=== PATIENT | female | born 1980 ===

== ENCOUNTER 2016-05-21 17:25 | Inpatient (IN) | payer OTHER, SELFPAY ==
[2016-05-21] MEDS ORDERED: Sodium Chloride 0.9% 1,000 ML IV STA (18:46)
[2016-05-21 19:24] LABS: BASO # 0.1 K/uL (0.0-0.2); BASO % 0.9 % (0.0-2.0); EOS % 0.5 % (0.0-4.0); HEMATOCRIT 28.8 % (34.0-47.0); LYMPH # 2.9 K/uL (1.0-4.3); LYMPH % 34.4 % (20.0-40.0); MEAN CELL VOLUME 64.8 fl (81.0-99.0); MEAN CORPUSCULAR HEMOGLOBIN 19.2 pg (27.0-31.0); MEAN CORPUSCULAR HGB CONC 29.6 g/dL (33.0-37.0); MEAN PLATELET VOLUME 6.8 fl (7.2-11.7); MONO # 0.9 K/uL (0.0-0.8); MONO % 10.2 % (0.0-10.0); NEUT # 4.6 K/uL (1.8-7.0); RED CELL DISTRIBUTION WIDTH 17.6 % (11.5-14.5); WHITE BLOOD COUNT 8.5 K/uL (4.8-10.8)
[2016-05-21 19:33] LABS: BLOOD UREA NITROGEN 9 mg/dl (7-17); GFR AFRICAN-AMERICAN > 60; GLUCOSE,RANDOM 106 mg/dL (65-105)
[2016-05-21 19:34] LABS: ALB/GLOB RATIO 1.1 (1.0-2.1); ALKALINE PHOSPHATASE 75 U/L (38-126); ALT/SGPT 27 U/L (9-52); AST/SGOT 55 U/L (14-36); BILIRUBIN,TOTAL 0.3 mg/dl (0.2-1.3); CALCIUM 8.7 mg/dL (8.4-10.2); CARBON DIOXIDE 26 mmol/L (22-30); CHLORIDE 104 mmol/L (98-107); POTASSIUM 3.5 MMOL/L (3.6-5.0); SODIUM 143 mmol/l (132-148); TOTAL PROTEIN 7.5 G/DL (6.3-8.2)
--- NOTE | 2016-05-21 19:42 | ED PDOC ---
HPI: Abdomen Time Seen by Provider: 05/21/16 18:30 Chief Complaint (Nursing): Abdominal Pain Chief Complaint (Provider): Abdominal Pain History Per: Patient History/Exam Limitations: no limitations Onset/Duration Of Symptoms: Days (x9 days) Outside of [place] travel?: No Current Symptoms Are (Timing): Still Present Severity: Moderate Location Of Pain/Discomfort: Epigastric Associated Symptoms: Nausea. denies: Fever, Vomiting, Diarrhea Additional Complaint(s): Estephania Calvin is a 35 year old female, with a past medical history of hyperthyroidism, who is presenting to the emergency department with complaints of epigastric abdominal pain that has been persistent for the past 9 days. She reports having an associated symptom of nausea however denies vomiting, diarrhea or a fever. PMD: none specified Past Medical History Reviewed: Historical Data, Nursing Documentation, Vital Signs Vital Signs: Last Vital Signs Temp 98.1 F 05/21/16 17:43 Pulse 82 05/21/16 17:43 Resp 18 05/21/16 17:43 BP 107/65 05/21/16 17:43 Pulse Ox 100 05/21/16 20:20 - Medical History PMH: Hyperthyroidism - Surgical History Surgical History: No Surg Hx - Family History Family History: States: Unknown Family Hx - Social History Current smoker - smoking cessation education provided: No Ex-Smoker (has not smoked in the last 12 months): No Alcohol: None Drugs: Denies - Home Medications Home Medications: Ambulatory Orders Medication Instructions Recorded Levothyroxine [Synthroid] 150 mcg PO DAILY 05/21/16 - Allergies Allergies/Adverse Reactions: Allergies Allergy/AdvReac Type Severity Reaction Status Date / Time No Known Allergies Allergy Verified 04/25/15 10:48 Review of Systems ROS Statement: Except As Marked, All Systems Reviewed And Found Negative Constitutional: Negative for: Fever Gastrointestinal: Positive for: Nausea, Abdominal Pain (epigastric). Negative for: Vomiting, Diarrhea Physical Exam - Reviewed Nursing Documentation Reviewed: Yes Vital Signs Reviewed: Yes - Physical Exam Appears: Positive for: Non-toxic, No Acute Distress Head Exam: Positive for: ATRAUMATIC, NORMOCEPHALIC Skin: Positive for: Normal Color, Warm, Dry Cardiovascular/Chest: Positive for: Regular Rate, Rhythm. Negative for: Murmur Respiratory: Positive for: Normal Breath Sounds. Negative for: Respiratory Distress Gastrointestinal/Abdominal: Positive for: Soft, Tenderness (epigastric). Negative for: Mass, Guarding, Rebound Back: Positive for: Normal Inspection Neurologic/Psych: Positive for: Alert, Oriented - Laboratory Results Result Diagrams: 05/21/16 21:45 05/21/16 19:00 - ECG O2 Sat by Pulse Oximetry: 100 (RA) Pulse Ox Interpretation: Normal Medical Decision Making Medical Decision Makin:30 Initial Impression: abdominal pain Initial Plan: * CBC * CMP * Udip * Upreg * Sodium Chloride 1,000 mls IV at 100 mls/hr * Pepcid 20mg IVP * Zofran 4mg IVP * Reevaluations Scribe Attestation: Documented by Daniel Barriga training under Pooja Jewell, acting as a scribe for Maurice Hanson MD. Provider Scribe Attestation: All medical record entries made by the Scribe were at my direction and personally dictated by me. I have reviewed the chart and agree that the record accurately reflects my personal performance of the history, physical exam, medical decision making, and the department course for this patient. I have also personally directed, reviewed, and agree with the discharge instructions and disposition. Disposition - Clinical Impression Clinical Impression: Gastritis, Gastrointestinal hemorrhage - Patient ED Disposition Is Patient to be Admitted: Yes - Disposition Disposition Time: 23:32 Condition: FAIR - Pt Status Changed To: Hospital Disposition Of: Observation - POA Present On Arrival: None
[2016-05-21 22:13] LABS: BASO # 0.1 K/uL (0.0-0.2); BASO % 0.6 % (0.0-2.0); EOS % 0.5 % (0.0-4.0); HEMATOCRIT 27.5 % (34.0-47.0); LYMPH # 3.5 K/uL (1.0-4.3); LYMPH % 43.3 % (20.0-40.0); MEAN CELL VOLUME 64.7 fl (81.0-99.0); MEAN CORPUSCULAR HEMOGLOBIN 19.4 pg (27.0-31.0); MEAN CORPUSCULAR HGB CONC 29.9 g/dL (33.0-37.0); MEAN PLATELET VOLUME 6.5 fl (7.2-11.7); MONO # 0.7 K/uL (0.0-0.8); MONO % 8.6 % (0.0-10.0); NEUT # 3.8 K/uL (1.8-7.0); NRBC % 0.1 % (0.0-0.0); RED CELL DISTRIBUTION WIDTH 17.4 % (11.5-14.5); WHITE BLOOD COUNT 8.2 K/uL (4.8-10.8)
[2016-05-21] MEDS ORDERED: Sterile Water 10 ML IV ONE (22:55)
[2016-05-21] MEDS ORDERED: Iohexol 300 100 ML IJ ONE (23:26)
[2016-05-21] MEDS ORDERED: Sodium Chloride 0.9% 50 ML IV ONE (23:26)
--- NOTE | 2016-05-22 00:26 | CT ---
EXAM: CT Abdomen and Pelvis With Intravenous Contrast. CLINICAL HISTORY: 35 years old, female; Pain; Abdominal pain; Epigastric; Additional info: Abd pain, gi bleed TECHNIQUE: Axial computed tomography images of the abdomen and pelvis with intravenous contrast. This CT exam was performed using one or more of the following dose reduction techniques: automated exposure control, adjustment of the mA and/or kV according to patient size, and/or use of iterative reconstruction technique. Coronal and sagittal reformatted images were created and reviewed. CONTRAST: 90 mL of [id number] administered intravenously. COMPARISON: No relevant prior studies available. FINDINGS: Lower thorax: Minimal atelectasis/scarring. Trace RIGHT pleural effusion. ABDOMEN: Liver: Unremarkable. No mass. Gallbladder and bile ducts: No calcified stones. No ductal dilation. Pancreas: No ductal dilation. No mass. Spleen: No splenomegaly. Adrenals: No mass. Kidneys and ureters: No mass. No hydronephrosis. Stomach and bowel: No definite mural thickening. No obstruction. Appendix: Normal caliber. No inflammation. PELVIS: Bladder: Unremarkable. Reproductive: 2.2 x 1.6 x 2.2 cm hypodense lesion within LEFT ovary. ABDOMEN and PELVIS: Intraperitoneal space: No significant fluid collection. No free air. Bones/joints: Severe scoliosis. Vertebral/rib anomalies of lower thoracic spine. No acute fracture. Soft tissues: Unremarkable. Vasculature: Retroaortic LEFT renal vein. No abdominal aortic aneurysm. Lymph nodes: No pathologically enlarged lymph nodes. IMPRESSION: 1. Probable LEFT ovarian cyst. Consider ultrasound. 2. Incidental/non-acute findings are described above.
--- NOTE | 2016-05-22 00:55 | CP.PCM.HP ---
History of Present Illness - History of Present Illness History of Present Illness: 35 yo F w/ PMHx of scoliosis, hypothyroidism presented to ED with complaint of epigastric pain x 9 days that worsened in the last 2 days which prompted ED visit. Patient states pain is intermittent with no precipitating, alleviating, or worsening factors. Patient states pain is associated with a bloating type feeling. Patient denies history of similar episodes, chest pain, sob, headache, palpitations, diarrhea, hematuria, urinary changes or active gross bleeding. Patient has some memory of possibly being diagnosed with anemia in the past though unclear history. Patient was nausea on arrival though denies vomiting. No bright red blood per rectum or melena though admits to constipation recently. Patient had 'hard' bowel movement this morning. LMP 05/12/16, occurs every month with 2-3day length of menses with minimal loss of blood, no clots. PMD: [facility] PMHx: scoliosis, hypothyroidism Meds: Levothyroxine 150mcg (has not taken in the last week due to running out of meds) Allergies: NKDA Surgeries: Denies Family hx: Significant for DM on maternal side Social hx: Lives with and 3 children. Denies tobacco, drug, or etoh use. ED Course: Vitals stable. Labs notable for Hgb8.5 (repeated 8.2) with low MCV (no baseline hgb available for comparison) Zofran x 1, Protonix x 1, Pepcid x 1 Occult blood (+) CT abdomen/pelvis ordered Present on Admission - Present on Admission Any Indicators Present on Admission: No Review of Systems - Review of Systems All systems: reviewed and no additional remarkable complaints except (mentioned in HPI) Past Patient History - Past Social History Alcohol: None Drugs: Denies - ENDOCRINE/METABOLIC Hx Hyperthyroidism: Yes - PSYCHIATRIC Hx Substance Use: No Meds Allergies/Adverse Reactions: Allergies Allergy/AdvReac Type Severity Reaction Status Date / Time No Known Allergies Allergy Verified 04/25/15 10:48 Physical Exam - Constitutional Appears: Well, Non-toxic, No Acute Distress - Head Exam Head Exam: ATRAUMATIC, NORMAL INSPECTION, NORMOCEPHALIC - Eye Exam Eye Exam: EOMI, Normal appearance, PERRL - ENT Exam ENT Exam: Mucous Membranes Moist, Normal Exam - Neck Exam Neck exam: Positive for: Normal Inspection - Respiratory Exam Respiratory Exam: Clear to Auscultation Bilateral, NORMAL BREATHING PATTERN. absent: Decreased Breath Sounds, Rales, Rhonchi, Wheezes - Cardiovascular Exam Cardiovascular Exam: REGULAR RHYTHM, RRR, +S1, +S2 - GI/Abdominal Exam GI & Abdominal Exam: Normal Bowel Sounds, Soft, Tenderness (mild epigastric). absent: Distended, Firm, Guarding, Rebound, Rigid - Extremities Exam Extremities exam: Positive for: normal inspection, pedal pulses present. Negative for: calf tenderness, tenderness Additional comments: leg length discrepancy - Back Exam Additional comments: abnormal spinal curvature noted, consistent with scoliosis - Neurological Exam Neurological exam: Alert, Oriented x3 - Psychiatric Exam Psychiatric exam: Normal Affect, Normal Mood - Skin Skin Exam: Dry, Intact, Normal Color, Warm Results - Vital Signs Recent Vital Signs: Last Vital Signs Temp 98.1 F 05/21/16 17:43 Pulse 82 05/21/16 17:43 Resp 18 05/21/16 17:43 BP 107/65 05/21/16 17:43 Pulse Ox 100 05/21/16 23:32 - Labs Result Diagrams: 05/21/16 21:45 05/21/16 19:00 Assessment & Plan (1) Anemia Status: Acute (2) Occult blood positive stool Status: Acute (3) Gastritis Status: Acute (4) Hypothyroid Status: Chronic (5) DVT prophylaxis Status: Acute - Assessment and Plan (Free Text) Assessment: 35 yo F w/ PMHx of hypothyroid, scoliosis, with epigastric pain and anemia with occult blood positive stool. Hemodynamically stable at this time. Plan: (1) Anemia, microcytic - H/H: 8.5/28.8 -> 8.2/27.5 - No baseline to compare, no clinical symptoms of gross active bleed - Hemoccult positive as per ED - FOBT ordered - If anemia worsens, consider GI or Heme/onc consult and/or transfusions - Monitor vitals for hemodynamic stability - Labs ordered to rule out other causes of anemia (eg, iron def) (2) Gastritis - CT abd/pelvis unremarkable for acute pathology though notable for left ovarian cyst to be followed up as outpatient. - Protonix 40mg IV daily at this time - NPO at this time until etiology of anemia is further evaluated - Zofran PRN n/v - Lipase and labs ordered, follow up (3) Hypothyroid - TSH ordered - c/w Levothyroxine 150mcg at this time (4) DVT prophylaxis - SCDs for now
[2016-05-22] MEDS: Sodium Chloride 0.9% 1,000 ML IV SCH ×3 (03:55→23:00)
[2016-05-22] MEDS: Levothyroxine 150 MCG TAB PO SCH (05:49)
[2016-05-22 08:12] LABS: ALKALINE PHOSPHATASE 71 U/L (38-126); ALT/SGPT 30 U/L (9-52); AMYLASE 106 U/L (30-110); AST/SGOT 30 U/L (14-36); BILIRUBIN,TOTAL 0.2 mg/dl (0.2-1.3); BLOOD UREA NITROGEN 8 mg/dl (7-17); CALCIUM 8.1 mg/dL (8.4-10.2); CARBON DIOXIDE 23 mmol/L (22-30); CHLORIDE 111 mmol/L (98-107); CHOLESTEROL 147 mg/dL (0-199); GFR AFRICAN-AMERICAN > 60; GLUCOSE,RANDOM 83 mg/dL (65-105); LIPASE 198 U/L (23-300); SODIUM 144 mmol/l (132-148); TOTAL PROTEIN 6.5 G/DL (6.3-8.2)
[2016-05-22 08:33] LABS: THYROID STIMULATING HORMONE 2.99 mIU/ML (0.46-4.68)
[2016-05-22 08:43] LABS: HEMATOCRIT 26.8 % (34.0-47.0); MEAN CELL VOLUME 64.4 fl (81.0-99.0); RED CELL DISTRIBUTION WIDTH 17.3 % (11.5-14.5); RETIC% 1.2 % (0.5-1.5); WHITE BLOOD COUNT 7.5 K/uL (4.8-10.8)
[2016-05-22 09:27] LABS: IRON 13 ug/dL (37-170)
--- NOTE | 2016-05-22 20:45 | CON ---
DATE: 05/22/2016 REFERRING PHYSICIAN: Dr. Cardenas. REASON FOR CONSULTATION: Abdominal discomfort. HISTORY OF PRESENT ILLNESS: This is a 35-year-old female with a history of scoliosis and also hypoth yroidism. She essentially comes in with abdominal pain and discomfort for 2 weeks, worse in the past 2 days and some constipation. No heartburn, no reflux. Some epigastric discomfort. No nausea, no vomiting. No rectal bleeding. Has heavy periods and heavy flow and irregular menses, otherwise lyin g in bed, comfortable, in no apparent distress. PAST MEDICAL HISTORY: As above. PAST SURGICAL HISTORY: None. MEDICATIONS: Have been reviewed. REVIEW OF SYSTEMS: All review of systems have been reviewed and are negative apart from the HPI. PHYSICAL EXAMINATION: VITAL SIGNS HERE IN THE HOSPITAL: . HEAD: Normocephalic, atraumatic. EYES: Pupils equally reactive to light bilaterally. No conjunctival pallor or icterus. NECK: Supple, normal range of motion. No lymphadenopathy appreciated. LUNGS: Coarse breath sounds bilaterally. HEART: S1, S2. Regular rate and rhythm. No murmurs appreciated. ABDOMEN: Soft, nontender. Some discomfort. No rebound or guarding. RECTAL: Deferred. EXTREMITIES: Pulses present bilaterally. SKIN: Warm, dry and intact. NEUROLOGIC: Alert and oriented x 3. LABORATORY DATA: All labs and relevant radiology have been reviewed. Labs include WBC of 7.5, hemog lobin 8.3, platelet count ____, . A CAT scan shows a left ovarian cyst. ASSESSMENT AND PLAN: This is a 35-year-old female with epigastric discomfort. I suspect this is all secondary to constipation and from the ovaries. Will try to start a diet. If she can tolerate it, we will consider endoscopy. and Bentyl. Thank you for the consult. Ford Pleitez MD, PhD cc:Kenzie Cardenas MD [id number] TT: 05/22/2016 20:44:25 Confirmation # [id number] Dictation # [id number]
[2016-05-22] MEDS: Sucralfate 1 gm/10 ml Oral Susp UD PO SCH (20:59)
[2016-05-23 05:08] LABS: HEMATOCRIT 27.5 % (35.0-45.0); HEMOGLOBIN 8.3 g/dL (11.7-15.5); RDW 18.5 % (11.0-15.0)
[2016-05-23] MEDS: Levothyroxine 150 MCG TAB PO SCH (06:31)
[2016-05-23 08:14] VITALS: O2SAT 99
[2016-05-23] MEDS: Sucralfate 1 gm/10 ml Oral Susp UD PO SCH ×3 (08:34→16:58)
--- NOTE | 2016-05-23 08:40 | CP.PCM.PN ---
<Sravani Billings - Last Filed: 05/23/16 14:19> Subjective - Date & Time of Evaluation Date of Evaluation: 05/23/16 Time of Evaluation: 08:40 - Subjective Subjective: 35 yo F w/ PMHx of scoliosis, hypothyroidism was seen resting comfortably at bedside. She is in no acute distress and AAOx3. She states last night she was able to eat jello and juice, but since then she has felt nauseus. She states that she now has pain in her LLQ. She denies any v/f/c/sob/cp. Objective - Vital Signs/Intake and Output Vital Signs (last 24 hours): Temp Pulse Resp BP Pulse Ox 98.2 F 68 20 94/58 L 99 05/23/16 08:14 05/23/16 08:14 05/23/16 08:14 05/23/16 08:14 05/23/16 08:14 - Medications Medications: Current Medications Levothyroxine Sodium (Synthroid) 150 mcg PO DAILY@0630 [facility] Last Admin: 05/23/16 06:31 Dose: 150 mcg Ondansetron HCl (Zofran Inj) 4 mg IVP Q6 PRN PRN Reason: Nausea/Vomiting Pantoprazole Sodium (Protonix Inj) 40 mg IVP DAILY [facility] Last Admin: 05/22/16 09:25 Dose: 40 mg Sucralfate (Carafate Oral Susp) 1 gm PO QID [facility] Last Admin: 05/22/16 20:59 Dose: 1 gm - Constitutional Appears: Well, Non-toxic, No Acute Distress - Head Exam Head Exam: NORMAL INSPECTION - Eye Exam Eye Exam: Normal appearance - ENT Exam ENT Exam: Mucous Membranes Moist - Neck Exam Neck Exam: Normal Inspection - Respiratory Exam Respiratory Exam: NORMAL BREATHING PATTERN. absent: Rales, Rhonchi, Wheezes - Cardiovascular Exam Cardiovascular Exam: REGULAR RHYTHM, +S1, +S2 - GI/Abdominal Exam GI & Abdominal Exam: Soft, Tenderness (LLQ, mild epigastric), Normal Bowel Sounds - Extremities Exam Extremities Exam: Normal Inspection. absent: Joint Swelling, Pedal Edema - Back Exam Additional comments: abdormal spinal curvature noted, consistent with scoliosis - Neurological Exam Neurological Exam: Alert, Awake, Oriented x3 - Psychiatric Exam Psychiatric exam: Normal Affect, Normal Mood - Skin Skin Exam: Normal Color, Warm Assessment and Plan - Assessment and Plan (Free Text) Assessment: 35 yo F w/ PMHx of hypothyroid, scoliosis, with epigastric pain Plan: (1) Anemia, microcytic - H/H: 8.3/26.8 (05/22/16)-> 8.2/27.5 (05/21/16) - No baseline to compare, no clinical symptoms of gross active bleed - Hemoccult positive as per ED - Stool Occult Blood negative (05/22/16) - GI- consult appreciated - Liquid Diet started - Per GI- if patient can toleration PO diet, will consider endoscopy - Monitor vitals for hemodynamic stability - Iron 13, TIBC WNL (2) Gastritis - CT abd/pelvis unremarkable for acute pathology though notable for left ovarian cyst to be followed up as outpatient. - Protonix 40mg IV daily at this time - NPO at this time until etiology of anemia is further evaluated - Zofran PRN n/v - Lipase WNL (3) Hypothyroid - TSH -2.99 - c/w Levothyroxine 150mcg at this time (4) DVT prophylaxis - SCDs for now <Janine Napoles - Last Filed: 05/23/16 14:32> Objective - Vital Signs/Intake and Output Vital Signs (last 24 hours): Temp Pulse Resp BP Pulse Ox 98.2 F 68 20 94/58 L 99 05/23/16 08:14 05/23/16 08:14 05/23/16 08:14 05/23/16 08:14 05/23/16 08:14 - Medications Medications: Current Medications Levothyroxine Sodium (Synthroid) 150 mcg PO DAILY@0630 [facility] Last Admin: 05/23/16 06:31 Dose: 150 mcg Ondansetron HCl (Zofran Inj) 4 mg IVP Q6 PRN PRN Reason: Nausea/Vomiting Last Admin: 05/23/16 08:42 Dose: 4 mg Pantoprazole Sodium (Protonix Inj) 40 mg IVP DAILY [facility] Last Admin: 05/23/16 08:35 Dose: 40 mg Sucralfate (Carafate Oral Susp) 1 gm PO QID [facility] Last Admin: 05/23/16 13:25 Dose: 1 gm - Skin Additional comments: ATTESTATION ATTENDING NOTE Patient seen and examined. chart reviewed. Case discussed with resident. Hgb now stable x 3 days. Agree with plan.
--- NOTE | 2016-05-23 14:24 | CP.PCM.DIS ---
<BillingsSravani - Last Filed: 05/23/16 14:22> Provider - Provider Date of Admission: 05/22/16 18:39 Attending physician: Kenzie Cardenas MD Consults: Dr. Pleitez-GI Time Spent in preparation of Discharge (in minutes): 45 Diagnosis - Discharge Diagnosis (1) Epigastric abdominal pain Status: Resolved Hospital Course - Lab Results Lab Results: Most Recent Lab Values WBC 7.5 K/uL (4.8-10.8) 05/22/16 06:00 RBC 4.16 Mil/uL (3.80-5.20) 05/22/16 06:00 Hgb 8.3 g/dL (12.0-16.0) L 05/22/16 06:00 Hct 26.8 % (34.0-47.0) L 05/22/16 06:00 MCV 64.4 fl (81.0-99.0) L 05/22/16 06:00 MCH 20.0 pg (27.0-31.0) L 05/22/16 06:00 MCHC 31.0 g/dL (33.0-37.0) L 05/22/16 06:00 RDW 17.3 % (11.5-14.5) H 05/22/16 06:00 Plt Count 292 K/uL (130-400) 05/22/16 06:00 MPV 6.5 fl (7.2-11.7) L 05/21/16 21:45 Neut % (Auto) 47.0 % (50.0-75.0) L 05/21/16 21:45 Lymph % (Auto) 43.3 % (20.0-40.0) H 05/21/16 21:45 [facility] % (Auto) 8.6 % (0.0-10.0) 05/21/16 21:45 Eos % (Auto) 0.5 % (0.0-4.0) 05/21/16 21:45 Baso % (Auto) 0.6 % (0.0-2.0) 05/21/16 21:45 Neut # 3.8 K/uL (1.8-7.0) 05/21/16 21:45 Lymph # 3.5 K/uL (1.0-4.3) 05/21/16 21:45 [facility] # 0.7 K/uL (0.0-0.8) 05/21/16 21:45 Eos # 0.0 K/uL (0.0-0.7) 05/21/16 21:45 Baso # 0.1 K/uL (0.0-0.2) 05/21/16 21:45 Retic Count 1.2 % (0.5-1.5) 05/22/16 06:00 Hemoglobinopathy Red Blood Count 4.19 Mill/mcL (3.80-5.10) 05/22/16 10:43 Hemoglobinopathy Hct 27.5 % (35.0-45.0) L 05/22/16 10:43 Hemoglobinopathy Hgb 8.3 g/dL (11.7-15.5) L 05/22/16 10:43 Hemoglobinopathy MCV 65.7 fL (80.0-100.0) L 05/22/16 10:43 Hemoglobinopathy MCH 19.8 pg (27.0-33.0) L 05/22/16 10:43 Hemoglobinopathy RDW 18.5 % (11.0-15.0) H 05/22/16 10:43 Sodium 144 mmol/l (132-148) 05/22/16 06:35 Potassium 4.0 MMOL/L (3.6-5.0) 05/22/16 06:35 Chloride 111 mmol/L (98-107) H 05/22/16 06:35 Carbon Dioxide 23 mmol/L (22-30) 05/22/16 06:35 Anion Gap 14 (10-20) 05/22/16 06:35 BUN 8 mg/dl (7-17) 05/22/16 06:35 Creatinine 0.5 mg/dL (0.7-1.2) L 05/22/16 06:35 Est GFR ( Amer) > 60 05/22/16 06:35 Est GFR (Non-Af Amer) > 60 05/22/16 06:35 Random Glucose 83 mg/dL (65-105) 05/22/16 06:35 Hemoglobin A1c 5.7 % (4.2-6.5) 05/22/16 08:06 Calcium 8.1 mg/dL (8.4-10.2) L 05/22/16 06:35 Iron 13 ug/dL (37-170) L 05/22/16 08:47 TIBC 410 ug/dL (250-450) 05/22/16 08:47 % Saturation 3 % (20-55) L 05/22/16 08:47 Ferritin 4.5 ng/mL 05/22/16 06:35 Total Bilirubin 0.2 mg/dl (0.2-1.3) 05/22/16 06:35 AST 30 U/L (14-36) 05/22/16 06:35 ALT 30 U/L (9-52) 05/22/16 06:35 Alkaline Phosphatase 71 U/L (38-126) 05/22/16 06:35 Total Protein 6.5 G/DL (6.3-8.2) 05/22/16 06:35 Albumin 3.3 g/dL (3.5-5.0) L 05/22/16 06:35 Globulin 3.2 gm/dL (2.2-3.9) 05/22/16 06:35 Albumin/Globulin Ratio 1.0 (1.0-2.1) 05/22/16 06:35 Triglycerides 198 mg/DL (0-149) H 05/22/16 06:35 Cholesterol 147 mg/dL (0-199) 05/22/16 06:35 LDL Cholesterol Direct 82 mg/dL (0-129) 05/22/16 06:35 HDL Cholesterol 35 MG/DL (30-70) 05/22/16 06:35 Amylase 106 U/L (30-110) 05/22/16 06:35 Lipase 198 U/L (23-300) 05/22/16 06:35 TSH 3rd Generation 2.99 mIU/ML (0.46-4.68) 05/22/16 06:35 Stool Occult Blood Negative (NEGATIVE) 05/22/16 14:20 - Hospital Course Hospital Course: 35 yo F w/ PMHx of scoliosis, hypothyroidism presented to ED with complaint of epigastric pain. In the ED she was FOBT positive, but stool was sent and found to be occult blood negative. GI was consulted, and they recommend an outpatient endoscopy. Patient has anemia, likely iron deficiency, follow up Hgb studies. Patient's hemoglobin has been stable throughout admission. Patient tolerated PO diet, feels better and will follow up in [facility] next week. Consider H. pylori as outpatient. PPI trail 4-6 additional weeks. Endoscopy as outpatient. Discharge Exam - Head Exam Head Exam: NORMAL INSPECTION Discharge Plan - Discharge Medications Prescriptions: Omeprazole 20 mg PO DAILY #30 ecc - Follow Up Plan Condition: GOOD Disposition: HOME/ ROUTINE Instructions: Gastritis (DC), Gastrointestinal Bleeding (GEN), Hypothyroidism ( DC), Anemia (DC) Additional Instructions: Patient to follow up in [facility] next week Patient to follow up with GI outpatient Medications: Levothyroxine 150 mcg PO daily Omeprazole 20 mg PO daily for 4-6 weeks Referrals: [facility] [Outside] <Janine Napoles - Last Filed: 05/24/16 09:09> Provider - Provider Date of Admission: 05/22/16 18:39 Attending physician: Kenzie Cardenas MD Hospital Course - Lab Results Lab Results: Most Recent Lab Values WBC 7.5 K/uL (4.8-10.8) 05/22/16 06:00 RBC 4.16 Mil/uL (3.80-5.20) 05/22/16 06:00 Hgb 8.3 g/dL (12.0-16.0) L 05/22/16 06:00 Hct 26.8 % (34.0-47.0) L 05/22/16 06:00 MCV 64.4 fl (81.0-99.0) L 05/22/16 06:00 MCH 20.0 pg (27.0-31.0) L 05/22/16 06:00 MCHC 31.0 g/dL (33.0-37.0) L 05/22/16 06:00 RDW 17.3 % (11.5-14.5) H 05/22/16 06:00 Plt Count 292 K/uL (130-400) 05/22/16 06:00 MPV 6.5 fl (7.2-11.7) L 05/21/16 21:45 Neut % (Auto) 47.0 % (50.0-75.0) L 05/21/16 21:45 Lymph % (Auto) 43.3 % (20.0-40.0) H 05/21/16 21:45 [facility] % (Auto) 8.6 % (0.0-10.0) 05/21/16 21:45 Eos % (Auto) 0.5 % (0.0-4.0) 05/21/16 21:45 Baso % (Auto) 0.6 % (0.0-2.0) 05/21/16 21:45 Neut # 3.8 K/uL (1.8-7.0) 05/21/16 21:45 Lymph # 3.5 K/uL (1.0-4.3) 05/21/16 21:45 [facility] # 0.7 K/uL (0.0-0.8) 05/21/16 21:45 Eos # 0.0 K/uL (0.0-0.7) 05/21/16 21:45 Baso # 0.1 K/uL (0.0-0.2) 05/21/16 21:45 Retic Count 1.2 % (0.5-1.5) 05/22/16 06:00 Hemoglobin A 97.4 Percent (>96.0) 05/22/16 10:43 Hemoglobin A2 1.6 Percent (1.8-3.5) L 05/22/16 10:43 Hemoglobin C 0.0 Percent (0.0-0.0) 05/22/16 10:43 Hemoglobin F () <1.0 Percent (<2.0) 05/22/16 10:43 Hemoglobin S 0.0 Percent (0.0-0.0) 05/22/16 10:43 Variant Hemoglobin 0.0 Percent (0.0-0.0) 05/22/16 10:43 Hemoglobinopathy Red Blood Count 4.19 Mill/mcL (3.80-5.10) 05/22/16 10:43 Hemoglobinopathy Hct 27.5 % (35.0-45.0) L 05/22/16 10:43 Hemoglobinopathy Hgb 8.3 g/dL (11.7-15.5) L 05/22/16 10:43 Hemoglobinopathy MCV 65.7 fL (80.0-100.0) L 05/22/16 10:43 Hemoglobinopathy MCH 19.8 pg (27.0-33.0) L 05/22/16 10:43 Hemoglobinopathy RDW 18.5 % (11.0-15.0) H 05/22/16 10:43 Hemoglobinopathy Interp See note (()) 05/22/16 10:43 Sodium 144 mmol/l (132-148) 05/22/16 06:35 Potassium 4.0 MMOL/L (3.6-5.0) 05/22/16 06:35 Chloride 111 mmol/L (98-107) H 05/22/16 06:35 Carbon Dioxide 23 mmol/L (22-30) 05/22/16 06:35 Anion Gap 14 (10-20) 05/22/16 06:35 BUN 8 mg/dl (7-17) 05/22/16 06:35 Creatinine 0.5 mg/dL (0.7-1.2) L 05/22/16 06:35 Est GFR ( Amer) > 60 05/22/16 06:35 Est GFR (Non-Af Amer) > 60 05/22/16 06:35 Random Glucose 83 mg/dL (65-105) 05/22/16 06:35 Hemoglobin A1c 5.7 % (4.2-6.5) 05/22/16 08:06 Calcium 8.1 mg/dL (8.4-10.2) L 05/22/16 06:35 Iron 13 ug/dL (37-170) L 05/22/16 08:47 TIBC 410 ug/dL (250-450) 05/22/16 08:47 % Saturation 3 % (20-55) L 05/22/16 08:47 Ferritin 4.5 ng/mL 05/22/16 06:35 Total Bilirubin 0.2 mg/dl (0.2-1.3) 05/22/16 06:35 AST 30 U/L (14-36) 05/22/16 06:35 ALT 30 U/L (9-52) 05/22/16 06:35 Alkaline Phosphatase 71 U/L (38-126) 05/22/16 06:35 Total Protein 6.5 G/DL (6.3-8.2) 05/22/16 06:35 Albumin 3.3 g/dL (3.5-5.0) L 05/22/16 06:35 Globulin 3.2 gm/dL (2.2-3.9) 05/22/16 06:35 Albumin/Globulin Ratio 1.0 (1.0-2.1) 05/22/16 06:35 Triglycerides 198 mg/DL (0-149) H 05/22/16 06:35 Cholesterol 147 mg/dL (0-199) 05/22/16 06:35 LDL Cholesterol Direct 82 mg/dL (0-129) 05/22/16 06:35 HDL Cholesterol 35 MG/DL (30-70) 05/22/16 06:35 Amylase 106 U/L (30-110) 05/22/16 06:35 Lipase 198 U/L (23-300) 05/22/16 06:35 TSH 3rd Generation 2.99 mIU/ML (0.46-4.68) 05/22/16 06:35 Stool Occult Blood Negative (NEGATIVE) 05/22/16 14:20 Discharge Exam - Skin Additional comments: ATTESTATION STATEMENT I have seen and examined this patient. I have discussed case with resident and agree with plan. Patient is markedly improved. She will be discharged on PPI RX and follow up as outpatient in the office within one week.
[2016-05-23 15:27] LABS: HEMOGLOBIN F <1.0 Percent (<2.0)
[2016-05-23 16:46] VITALS: BP 95/60; PULSE 66; RESP 18; TEMP 98.4
== END 2016-05-23 18:49 | disposition home or self-care (01) | DRG 183 ==
LOC: H.ER 17:25 → H.ERHOLD 23:21 → H.MEDSURG1 05-22 02:18 → OBSVTOIN 05-22 18:39
PROVIDERS: ADMIT Family Medicine Geriatric Medicine; ATTEND Family Medicine Geriatric Medicine
DX: K29.70 Gastritis, unspecified, without bleeding (principal); M41.9 Scoliosis, unspecified; E03.9 Hypothyroidism, unspecified; D50.9 Iron deficiency anemia, unspecified